=== PATIENT | female | born 1990 | race American Indian/Alaskan Native ===

== ENCOUNTER 2018-04-10 12:25 | Emergency (ER) | payer BC ==
[2018-04-10 14:34] VITALS: BMI 36.9
== END 2018-04-10 13:02 | disposition left against medical advice (07) ==
LOC: ED 12:25
DX: Z02.89 Encounter for other administrative examinations (principal); R52 Pain, unspecified

== ENCOUNTER 2018-04-10 13:29 | Emergency (ER) | payer BC ==
[2018-04-10 14:34] VITALS: BMI 36.9
[2018-04-10 14:35] VITALS: RESP 18; TEMP 98.4
--- NOTE | 2018-04-10 15:45 | ED PDOC ---
Arrival/HPI - General Historian: Patient - History of Present Illness Narrative History of Present Illness (Text): Pt is a 27 F with PMH irregular periods who presents with LLQ pain and prolonged mentrual bleeding x 4 weeks. She states that she usually has no periods for the last few months of the year then becomes regular again for approximately 8-9 months. she states that this time she has had a prolonged period of approximately 4 weeks and is beginning to feel fatigued, have occasional dizziness with nausea and is often cold. She states that she has recently been to an Urgent care where she was told she may have a heart murmur. patient has recently seen Dr. Rafa peralta OBGYN who she states is concerned she may have PCOS and was planning to start her on oral contraceptive treatment soon. She otherwise denies chest pain, SOB, cough, vomiting, f/c, dyuria, stool changes and extremity pain/weakness. 04/10/18 15:50 Time/Duration: Prior to Arrival, > month (3-4 months) Symptom Onset: Gradual Symptom Course: Unchanged Quality: Stabbing, Cramping Severity Level: 6 Activities at Onset: Rest Associated Symptoms (Text): 04/10/18 15:42 dizziness, fatigue, prolonged menstrual bleeding <Manda Jimenez - Last Filed: 04/10/18 17:39> <Margot Bryant - Last Filed: 04/10/18 19:37> - General Chief Complaint: Abdominal Pain Time Seen by Provider: 04/10/18 14:06 Past Medical History - Provider Review Nursing Documentation Reviewed: Yes - Travel History Have you recently traveled outside [place] w/in the past 3 mons?: No - Past History Past History: No Previous - Infectious Disease Hx of Infectious Diseases: None - Tetanus Immunization Tetanus Immunization: Unknown - Psychiatric Hx Depression: No Hx Emotional Abuse: No Hx Physical Abuse: No Hx Substance Use: No - Past Surgical History Past Surgical History: No Previous - Suicidal Assessment Feels Threatened In Home Enviroment: No <Manda Jimenez - Last Filed: 04/10/18 17:39> Family/Social History - Physician Review Nursing Documentation Reviewed: Yes Family/Social History: Diabetes (paternal side) Smoking Status: Never Smoked Hx Alcohol Use: No Hx Substance Use: No Hx Substance Use Treatment: No <Manda Jimenez - Last Filed: 04/10/18 17:39> Allergies/Home Meds <Manda Jimenez - Last Filed: 04/10/18 17:39> <Margot Bryant - Last Filed: 04/10/18 19:37> Allergies/Adverse Reactions: Allergies No Known Allergies Allergy (Verified 04/10/18 14:34) Home Medications: Home Meds Medication Instructions Recorded Confirmed RX: No Known Home Med 03/02/12 04/10/18 Review of Systems - Physician Review All systems were reviewed & negative as marked: Yes - Review of Systems Constitutional: Fatigue. absent: Fevers Respiratory: absent: SOB, Cough Cardiovascular: absent: Chest Pain, Calf Pain, Syncope Gastrointestinal: Abdominal Pain (LLQ), Nausea. absent: Vomiting, Hematochezia, Hematemesis Genitourinary Female: Vaginal Bleeding (x 4 weeks). absent: Dysuria Musculoskeletal: absent: Back Pain Skin: absent: Rash, Skin Lesions Neurological: Headache, Dizziness Endocrine: absent: Diaphoresis <Manda Jimenez - Last Filed: 04/10/18 17:39> Physical Exam Vital Signs Reviewed: Yes Vital Signs Temp Pulse Resp BP Pulse Ox 04/10/18 14:34 98.4 F 71 18 110/73 98 Temperature: Afebrile Blood Pressure: Normal Pulse: Regular Respiratory Rate: Normal Appearance: Positive for: Well-Appearing, Non-Toxic, Comfortable Pain Distress: Mild Mental Status: Positive for: Alert and Oriented X 3 - Systems Exam Head: Present: Atraumatic, Normocephalic Pupils: Present: PERRL Extroacular Muscles: Present: EOMI Mouth: Present: Moist Mucous Membranes Neck: Present: Normal Range of Motion Respiratory/Chest: Present: Clear to Auscultation. No: Respiratory Distress, Accessory Muscle Use Cardiovascular: Present: Regular Rate and Rhythm, Normal S1, S2 Abdomen: Present: Tenderness (LLQ pelvic area), Guarding (LLQ). No: Distention, Peritoneal Signs, Rebound Upper Extremity: Present: Normal Inspection, NORMAL PULSES. No: Cyanosis, Edema Lower Extremity: Present: Normal Inspection, NORMAL PULSES. No: Edema, CALF TENDERNESS Neurological: Present: GCS=15, CN II-XII Intact, Speech Normal Skin: Present: Warm, Dry, Normal Color. No: Rashes Psychiatric: Present: Alert, Oriented x 3, Normal Insight, Normal Concentration <Manda Jimenez - Last Filed: 04/10/18 17:39> Vital Signs Temp Pulse Resp BP Pulse Ox 04/10/18 16:35 68 18 108/68 98 04/10/18 14:34 98.4 F 71 18 110/73 98 <PattithomasMargot Judy - Last Filed: 04/10/18 19:37> Medical Decision Making ED Course and Treatment: Impression: 27 yr old female with prolonged vaginal bleeding x 4 weeks associated with fatigue and occasional dizziness, suspicious for PCOS Plan: urine test CBC CMP EKG transvaginal US tylenol for pain reassess and dispo 04/10/18 15:47 - Lab Interpretations Lab Results: 04/10/18 16:43 04/10/18 16:43 Lab Results 04/10/18 16:43: PT 11.9, INR 1.07, APTT 39.1 H 04/10/18 16:43: Sodium 139, Potassium 3.9, Chloride 102, Carbon Dioxide 29, Anion Gap 12, BUN 14, Creatinine 0.9, Est GFR ( Amer) > 60, Est GFR (Non- Af Amer) > 60, Random Glucose 88, Calcium 9.4, Phosphorus 4.5, Magnesium 2.1, Total Bilirubin 0.6, AST 27, ALT 15, Alkaline Phosphatase 91, Total Protein 8.5 H, Albumin 4.2, Globulin 4.3, Albumin/Globulin Ratio 1.0 L, Lipase 33 04/10/18 16:43: WBC 9.8, RBC 4.69, Hgb 12.7, Hct 37.7, MCV 80.4, MCH 27.1, MCHC 33.7, RDW 14.3, Plt Count 451 H, MPV 10.1, Gran % 50.0, Lymph % (Auto) 39.1 H, [place] % (Auto) 7.4 H, Eos % (Auto) 3.1, Baso % (Auto) 0.4, Gran # 4.90, Lymph # (Auto) 3.8 H, [place] # (Auto) 0.7 H, Eos # (Auto) 0.3, Baso # (Auto) 0.04 - RAD Interpretation Narrative RAD Interpretations (Text): 04/10/18 17:14 Radiology Results Transvaginal US 04/10/18 14:56 IMPRESSION: Unremarkable pelvic ultrasound. Radiology Orders: 04/10/18 14:56 TRANSVAGINAL [US] Stat - Medication Orders Current Medication Orders: Discontinued Medications Acetaminophen (Tylenol 325mg Tab) 650 mg PO STAT STA Stop: 04/10/18 14:57 <Celeste Jimenezah - Last Filed: 04/10/18 17:39> ED Course and Treatment: 04/10/18 16:52 Patient seen by resident and then evaluated by me. Complaining of vaginal bleeding and fatigue x 4 weeks. No appreciable murmur or irregular rhythm. Patient reports that she was told that she has a heart murmur. She was made aware of importance of following up with cardiology and was given a referral. EKG shows NSR at 65bpm with normal intervals and no ST changes. No complaint of dysuria. Pelvic ultrasound negative. hgb:12.7. No compliant of dysuria. 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 She has already had discussions with OB about starting control and was encouraged to follow-up with them for further evaluation of painful, heavy and irregular menses. 04/10/18 17:08 04/10/18 17:09 04/10/18 19:35 - RAD Interpretation Radiology Orders: 04/10/18 14:56 TRANSVAGINAL [US] Stat - Medication Orders Current Medication Orders: Discontinued Medications Acetaminophen (Tylenol 325mg Tab) 650 mg PO STAT STA Stop: 04/10/18 14:57 Last Admin: 04/10/18 16:41 Dose: 650 mg MAR Pain/Vitals Document 04/10/18 16:41 KV (Rec: 04/10/18 16:42 KV [id number]) Pain Reassessment Is This A Pain ReAssessment? No Sleep Is patient sleeping during reassessment? No Presence of Pain Presence of Pain Yes Pain Scale Used Protocol: PSCALES Pain Scale Used Numeric Location Left, Right or Bilateral Left Upper or Lower Lower Pain Location Body Site Abdomen Description Intermittent Intensity 7 Scale Used Numeric <Margot Bryant - Last Filed: 04/10/18 19:37> Disposition/Present on Arrival - Present on Arrival Any Indicators Present on Arrival: No History of DVT/PE: No History of Uncontrolled Diabetes: No Urinary Catheter: No History of Decub. Ulcer: No History Surgical Site Infection Following: None - Disposition Have Diagnosis and Disposition been Completed?: Yes Disposition Time: 17:13 Patient Plan: Discharge <JimenezManda plummer - Last Filed: 04/10/18 17:39> - Disposition Have Diagnosis and Disposition been Completed?: Yes <Margot Bryant Judy - Last Filed: 04/10/18 19:37> - Disposition Diagnosis: Irregular menses, Painful menstruation Disposition: HOME/ ROUTINE Condition: GOOD Additional Instructions: Upon discharge please follow up with your OBGYN Dr. Craig within 3-5 days for further evaluation please also follow up with with a python consultant for further evaluation of the murmur you were told you had in a previous urgent care visit. you have been given a copy of your US report to take with you to Dr. Craig If your symptoms worsen, persist or if new concerning symptoms occur please return to the nearest ER immediately for further evaluation. Referrals: Michael Hall MD [Staff Provider] - Follow up with primary Forms: [employer] ([employer])
[2018-04-10 17:04] LABS: ALBUMIN 4.2 g/dL (3.0-4.8); ALT/SGPT 15 U/L (7-56); AST/SGOT 27 U/L (14-36); BLOOD UREA NITROGEN 14 mg/dL (7-21); CALCIUM 9.4 mg/dL (8.4-10.5); GFR NON-AFRICAN AMERICAN > 60; LIPASE 33 U/L (23-300)
[2018-04-10 17:06] LABS: BASO # 0.04 K/mm3 (0.0-2.0); BASO % 0.4 % (0.0-3.0); EOS # 0.3 (0.0-0.7); EOS % 3.1 % (1.5-5.0); GRAN # 4.9 (1.4-6.5); HEMOGLOBIN 12.7 g/dL (12.0-16.0); LYMPH # 3.8 (1.2-3.4); LYMPH % 39.1 % (22.0-35.0); MEAN CELL VOLUME 80.4 fl (80.0-105.0); MEAN CORPUSCULAR HEMOGLOBIN 27.1 pg (25.0-35.0); MEAN CORPUSCULAR HGB CONC 33.7 g/dl (31.0-37.0); MEAN PLATELET VOLUME 10.1 fl (7.0-11.0); MONO # 0.7 (0.1-0.6); MONO % 7.4 % (1.0-6.0); RBC 4.69 10^6/uL (3.5-6.1); RED CELL DISTRIBUTION WIDTH 14.3 % (11.5-14.5); WHITE BLOOD COUNT 9.8 10^3/uL (4.5-11.0)
--- NOTE | 2018-04-10 17:06 | US ---
Date of service: 04/10/2018 HISTORY: pelvic pain, vaginal bleeding COMPARISON: None available. TECHNIQUE: Transabdominal and endovaginal ultrasound examination of the pelvis was performed. FINDINGS: UTERUS: Measures 7.3 x 3.5 x 4.7 cm. Normal in size and appearance. No fibroid or other mass lesion seen. ENDOMETRIUM: Measures 8 mm in diameter. Unremarkable. CERVIX: No cervical abnormality identified. RIGHT OVARY: Measures 3.3 x 2 x 3 cm. No solid mass. Normal flow. LEFT OVARY: Measures 2.7 x 3.2 x 2.1 cm. No solid mass. Normal flow. FREE FLUID: No significant free fluid noted. OTHER FINDINGS: None. IMPRESSION: Unremarkable pelvic ultrasound.
[2018-04-10 17:12] LABS: INR 1.07; PARTIAL THROMBOPLASTIN TIME 39.1 Seconds (26.9-38.3); PROTHROMBIN TIME 11.9 SECONDS (9.4-12.5)
[2018-04-10 18:06] VITALS: BP 131/65; PULSE 69; O2SAT 99
--- NOTE | 2018-04-10 22:52 | CARD ---
APPROVED REPORT Date of service: 04/10/2018 EKG Measurement Heart [id number] <Conclusion> Normal sinus rhythm Normal ECG
== END 2018-04-10 18:04 | disposition home or self-care (01) ==
LOC: ED 13:29
DX: N92.6 Irregular menstruation, unspecified (principal); N94.6 Dysmenorrhea, unspecified; Z83.3 Family history of diabetes mellitus